=== PATIENT | female | born 1975 | race American Indian/Alaskan Native ===

== ENCOUNTER 2016-11-30 08:43 | Emergency (ER) | payer MEDICAID ==
[2016-11-30 08:45] VITALS: BMI 20.3
[2016-11-30 09:10] VITALS: RESP 18; TEMP 98.2
[2016-11-30 09:10] LABS: URINE BILIRUBIN NEGATIVE (NEGATIVE); URINE BLOOD NEGATIVE (NEGATIVE); URINE GLUCOSE (UA) NEGATIVE (NEGATIVE); URINE KETONE NEGATIVE (NEGATIVE); URINE LEUKOCYTE ESTERASE NEGATIVE Leu/uL (NEGATIVE); URINE PROTEIN NEGATIVE mg/dL (<30 mg/dL); URINE UROBILINOGEN 0.2 E.U./dL (<1 E.U./dL)
[2016-11-30 09:17] LABS: URINE APPEARANCE CLEAR (CLEAR); URINE COLOR YELLOW (YELLOW)
[2016-11-30 09:27] LABS: ADD MANUAL DIFF? NO
--- NOTE | 2016-11-30 09:28 | ED PDOC ---
Arrival/HPI - General Chief Complaint: Chest Pain Time Seen by Provider: 11/30/16 09:09 Historian: Patient - History of Present Illness Narrative History of Present Illness (Text): 11/30/16 09:00 A 41 year old female presents to the emergency room with complaints of left sided chest pain since yesterday. Patient reports that the pain is exacerbated with breathing, coughing, or laughing and is relieved when applying pressure to the chest with her hand. Patient notes that she had a similar episode 2 years ago. Patient admits to smoking and using a control patch. Patient denies any shortness of breath, headaches, dizziness, nausea, vomiting, diarrhea, or any other complaints. PMD: None Time/Duration: 24 hours Symptom Onset: Sudden Symptom Course: Unchanged Quality: Other (Pain) Severity Level: Moderate Activities at Onset: Light Context: Home Past Medical History - Provider Review Nursing Documentation Reviewed: Yes - Infectious Disease Hx of Infectious Diseases: None - Tetanus Immunization Tetanus Immunization: Up to Date - Past Medical History Past Medical History: No Previous - Cardiac Hx Cardiac Disorders: Yes - Pulmonary Hx Respiratory Disorders: No - Neurological Hx Neurological Disorder: No - HEENT Hx HEENT Disorder: No - Renal Hx Renal Disorder: No - Endocrine/Metabolic Hx Endocrine Disorders: No - Hematological/Oncological Hx Blood Disorders: No - Integumentary Hx Dermatological Disorder: No - Musculoskeletal/Rheumatological Hx Musculoskeletal Disorders: Yes Hx Osteoporosis: Yes - Gastrointestinal Hx Gastrointestinal Disorders: No - Genitourinary/Gynecological Hx Genitourinary Disorders: Yes Other/Comment: premature ovaires - Psychiatric Hx Psychophysiologic Disorder: No Hx Depression: No Hx Emotional Abuse: No Hx Physical Abuse: No Hx Substance Use: No - Surgical History Hx Musculoskeletal Surgery: Yes (ankle fracture) - Anesthesia Hx Anesthesia: Yes Hx Anesthesia Reactions: No Hx Malignant Hyperthermia: No - Suicidal Assessment Feels Threatened In Home Enviroment: No Family/Social History - Physician Review Nursing Documentation Reviewed: Yes Family/Social History: Neoplasm/Cancer (Mother has lung cancer) Smoking Status: Light Smoker < 10 Cigarettes Daily Hx Alcohol Use: No Hx Substance Use: No Hx Substance Use Treatment: No Allergies/Home Meds Allergies/Adverse Reactions: Allergies No Known Allergies Allergy (Verified 11/30/16 09:10) Home Medications: Home Meds Medication Instructions Recorded Confirmed Control Patch 1 patch TOP DAILY 11/30/16 Review of Systems - Physician Review All systems were reviewed & negative as marked: Yes - Review of Systems Respiratory: absent: SOB Cardiovascular: Chest Pain Gastrointestinal: absent: Diarrhea, Nausea, Vomiting Neurological: absent: Headache, Dizziness Physical Exam Vital Signs Reviewed: Yes Vital Signs Temp Pulse Resp BP Pulse Ox 11/30/16 08:43 98.2 F 72 18 124/62 98 Temperature: Afebrile Blood Pressure: Normal Pulse: Regular Respiratory Rate: Normal Appearance: Positive for: Well-Appearing, Non-Toxic, Comfortable Pain Distress: None Mental Status: Positive for: Alert and Oriented X 3 - Systems Exam Head: Present: Atraumatic, Normocephalic Pupils: Present: PERRL Conjunctiva: Present: Normal Mouth: Present: Moist Mucous Membranes Neck: Present: Normal Range of Motion Respiratory/Chest: Present: Clear to Auscultation, Good Air Exchange, Tender to Palpation (Tenderness over left breast. 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 ). No: Respiratory Distress, Accessory Muscle Use Cardiovascular: Present: Regular Rate and Rhythm, Normal S1, S2. No: Murmurs Abdomen: Present: Normal Bowel Sounds. No: Tenderness, Distention, Peritoneal Signs Upper Extremity: Present: Normal Inspection. No: Cyanosis, Edema Lower Extremity: Present: Normal Inspection. No: Edema Neurological: Present: GCS=15, CN II-XII Intact, Speech Normal Skin: Present: Warm, Dry, Normal Color. No: Rashes Psychiatric: Present: Alert, Oriented x 3, Normal Insight, Normal Concentration Medical Decision Making ED Course and Treatment: EKG: Ordered, reviewed, and independently interpreted the EKG. Rate : 71 BPM Rhythm : NSR Interpretation : 1st Degree AV block. Normal axis. No acute ischemia. CXR Impression: As read by Dr. García, no active disease. 11/30/16 11:31 pt resting quietly. reports feeling better after toradol. I disc test results w her, plan for f/u, and rtr. - Lab Interpretations Lab Results: 11/30/16 08:50 11/30/16 08:50 Lab Results 11/30/16 10:20: D-Dimer, Quantitative 0.34 11/30/16 08:50: WBC 8.8, RBC 4.25, Hgb 13.3, Hct 37.5, MCV 88.2, MCH 31.3, MCHC 35.5, RDW 13.4, Plt Count 246, MPV 11.2 H, Gran % 66.8, Lymph % (Auto) 23.2, [place] % (Auto) 7.5 H, Eos % (Auto) 2.3, Baso % (Auto) 0.2, Gran # 5.91, Lymph # 2.1, [place] # 0.7 H, Eos # 0.2, Baso # 0.02, Sodium 137, Potassium 3.9, Chloride 105, Carbon Dioxide 25, Anion Gap 11, BUN 7, Creatinine 0.6, Est GFR ( Amer) > 60, Est GFR (Non-Af Amer) > 60, Random Glucose 94, Calcium 9.2, Total Bilirubin 0.5, AST 26, ALT 18, Alkaline Phosphatase 80, Troponin I < 0.01, Total Protein 7.7, Albumin 4.0, Globulin 3.7, Albumin/Globulin Ratio 1.1 11/30/16 08:45: Urine Color Yellow, Urine Appearance Clear, Urine pH 6.0, Ur Specific [place] 1.020, Urine Protein Negative, Urine Glucose (UA) Negative, Urine Ketones Negative, Urine Blood Negative, Urine Nitrate Negative, Urine Bilirubin Negative, Urine Urobilinogen 0.2, Ur Leukocyte Esterase Negative, Urine HCG, Qual Negative I have reviewed the lab results: Yes - RAD Interpretation Radiology Orders: 11/30/16 09:11 CHEST TWO VIEWS (PA/LAT) [RAD] Stat - Medication Orders Current Medication Orders: Discontinued Medications Ketorolac Tromethamine (Toradol) 10 mg IVP STAT STA Stop: 11/30/16 09:10 Last Admin: 11/30/16 09:21 Dose: 10 MG IVP Administration Document 11/30/16 09:[address] [facility] (Rec: 11/30/16 09:21 COUNT INCLUDES THE [facility]-[id number]) Charges for Administration # of IVP Administrations 1 - Scribe Statement The provider has reviewed the documentation as recorded by the Scribe Kp Barnes All medical record entries made by the Scribe were at my direction and personally dictated by me. I have reviewed the chart and agree that the record accurately reflects my personal performance of the history, physical exam, medical decision making, and the department course for this patient. I have also personally directed, reviewed, and agree with the discharge instructions and disposition. Disposition/Present on Arrival - Present on Arrival Any Indicators Present on Arrival: No History of DVT/PE: No History of Uncontrolled Diabetes: No Urinary Catheter: No History of Decub. Ulcer: No History Surgical Site Infection Following: None - Disposition Have Diagnosis and Disposition been Completed?: Yes Diagnosis: Chest wall pain Disposition: HOME/ ROUTINE Disposition Time: 11:32 Condition: IMPROVED Discharge Instructions (ExitCare): Chest Pain (ED)
[2016-11-30 09:34] LABS: BASO # 0.02 K/mm3 (0.0-2.0); BASO % 0.2 % (0.0-3.0); EOS # 0.2 (0.0-0.7); EOS % 2.3 % (1.5-5.0); GRAN # 5.91 (1.4-6.5); GRAN % 66.8 % (50.0-68.0); HEMATOCRIT 37.5 % (36.0-48.0); LYMPH # 2.1 (1.2-3.4); LYMPH % 23.2 % (22.0-35.0); MEAN CELL VOLUME 88.2 fL (80.0-105.0); MEAN CORPUSCULAR HEMOGLOBIN 31.3 pg (25.0-35.0); MEAN CORPUSCULAR HGB CONC 35.5 g/dl (31.0-37.0); MEAN PLATELET VOLUME 11.2 fl (7.0-11.0); MONO # 0.7 (0.1-0.6); MONO % 7.5 % (1.0-6.0); PLATELET COUNT 246 10^3/uL (120.0-450.0); RED CELL DISTRIBUTION WIDTH 13.4 % (11.5-14.5); WHITE BLOOD COUNT 8.8 10^3/ul (4.5-11.0)
[2016-11-30 09:40] LABS: ALB/GLOB RATIO 1.1 (1.1-1.8); ALKALINE PHOSPHATASE 80 U/L (38-133); ALT/SGPT 18 U/L (7-56); AST/SGOT 26 U/L (15-39); BILIRUBIN,TOTAL 0.5 mg/dL (0.2-1.3); BLOOD UREA NITROGEN 7 mg/dL (7-21); CALCIUM 9.2 mg/dL (8.4-10.5); CARBON DIOXIDE 25 mmol/L (21-33); CHLORIDE 105 mmol/L (98-107); GFR AFRICAN-AMERICAN > 60; GLUCOSE,RANDOM 94 mg/dL (70-110); POTASSIUM 3.9 mmol/L (3.6-5.0); SODIUM 137 mmol/L (132-148); TOTAL PROTEIN 7.7 g/dL (5.8-8.3)
[2016-11-30 09:51] LABS: TROPONIN I < 0.01 ng/mL
--- NOTE | 2016-11-30 10:22 | RAD ---
HISTORY: cp COMPARISON: No prior. TECHNIQUE: Chest PA and lateral FINDINGS: LUNGS: No active pulmonary disease. PLEURA: No significant pleural effusion identified. No pneumothorax apparent. CARDIOVASCULAR: Normal. OSSEOUS STRUCTURES: No significant abnormalities. VISUALIZED UPPER ABDOMEN: Normal. OTHER FINDINGS: None. IMPRESSION: No active disease.
[2016-11-30 11:42] VITALS: BP 129/76; PULSE 67; O2SAT 99
--- NOTE | 2016-11-30 12:36 | CARD ---
APPROVED REPORT EKG Measurement Heart [id number] <Conclusion> Sinus rhythm with 1st degree AV block Possible LVH by voltage.
== END 2016-11-30 11:43 | disposition home or self-care (01) ==
LOC: ED 08:43
DX: R07.89 Other chest pain (principal)
CPT/HCPCS: 71020; 80053; 81003; 84484; 84703; 85025; 85378; 93005; 96374; 99283; J1885

== ENCOUNTER 2017-10-03 13:13 | Emergency (ER) | payer MEDICAID ==
[2017-10-03 13:13] VITALS: BMI 20.3
--- NOTE | 2017-10-03 15:37 | ED PDOC ---
Arrival/HPI - General Chief Complaint: Lower Extremity Problem/Injury Time Seen by Provider: 10/03/17 15:36 Historian: Patient - History of Present Illness Narrative History of Present Illness (Text): 10/03/17 15:37 This 42 yo female presents to this Emergency department complaining of right dorsal foot pain and swelling x 2 weeks. Patient denies trauma. Patient admits driving, lifting and walking through the day at work. Patient denies pmh gout, plantar foot pain, ankle pain, skin rash, redness, ecchymosis, calf pain, leg swelling, recent travel, blood disorder, or dizziness. Time/Duration: Other (noncontributory) Context: Home Past Medical History - Provider Review Nursing Documentation Reviewed: Yes - Infectious Disease Hx of Infectious Diseases: None - Tetanus Immunization Tetanus Immunization: Up to Date - Past Medical History Past Medical History: No Previous - Cardiac Hx Cardiac Disorders: No - Pulmonary Hx Respiratory Disorders: No - Neurological Hx Neurological Disorder: No - HEENT Hx HEENT Disorder: No - Renal Hx Renal Disorder: No - Endocrine/Metabolic Hx Endocrine Disorders: No - Hematological/Oncological Hx Blood Disorders: No - Integumentary Hx Dermatological Disorder: No - Musculoskeletal/Rheumatological Hx Musculoskeletal Disorders: Yes Hx Osteoporosis: Yes - Gastrointestinal Hx Gastrointestinal Disorders: No - Genitourinary/Gynecological Hx Genitourinary Disorders: Yes Other/Comment: premature ovaires - Psychiatric Hx Psychophysiologic Disorder: No Hx Depression: No Hx Emotional Abuse: No Hx Physical Abuse: No Hx Substance Use: No - Surgical History Hx Musculoskeletal Surgery: Yes (ankle fracture) - Anesthesia Hx Anesthesia: Yes Hx Anesthesia Reactions: No Hx Malignant Hyperthermia: No - Suicidal Assessment Feels Threatened In Home Enviroment: No Family/Social History - Physician Review Nursing Documentation Reviewed: Yes Family/Social History: Other (noncontributory) Smoking Status: Light Smoker < 10 Cigarettes Daily Hx Alcohol Use: No Hx Substance Use: No Hx Substance Use Treatment: No Allergies/Home Meds Allergies/Adverse Reactions: Allergies No Known Allergies Allergy (Verified 11/30/16 09:10) Home Medications: Home Meds Medication Instructions Recorded Confirmed Control Patch 1 patch TOP DAILY 11/30/16 Review of Systems - Review of Systems Constitutional: Normal. absent: Fatigue, Weight Change, Fevers Eyes: Normal ENT: Normal Respiratory: Normal. absent: SOB, Cough Cardiovascular: Normal. absent: Chest Pain Gastrointestinal: Normal. absent: Abdominal Pain, Nausea, Vomiting Genitourinary Female: Normal. absent: Dysuria, Frequency, Hematuria Musculoskeletal: Other (right foot pain and swelling) Skin: Normal. absent: Rash Neurological: Normal. absent: Headache, Dizziness Endocrine: Normal Hemo/Lymphatic: Normal Psychiatric: Normal Physical Exam Vital Signs Temp Pulse Resp BP Pulse Ox 10/03/17 15:53 98.0 F 70 18 118/75 98 Temperature: Afebrile Blood Pressure: Normal Pulse: Regular Respiratory Rate: Normal Appearance: Positive for: Well-Appearing, Non-Toxic, Comfortable Pain Distress: None Mental Status: Positive for: Alert and Oriented X 3 - Systems Exam Head: Present: Atraumatic, Normocephalic Pupils: Present: PERRL Extroacular Muscles: Present: EOMI Conjunctiva: Present: Normal Mouth: Present: Moist Mucous Membranes Neck: Present: Normal Range of Motion Upper Extremity: Present: Normal Inspection, Normal ROM Lower Extremity: Present: NORMAL PULSES, Normal ROM, Tenderness (Mild tenderness over the dorsal aspect of right foot, over the area of 1st, and 2nd metatarsal. No erythema, no warmth on palaption. No ecchymosis), Swelling, Neurovascularly Intact, Capillary Refill < 2 s. No: Edema, CALF TENDERNESS, Cyanosis, Mariah's Sign, Erythema, Deformity, Temperature Abnormalties Neurological: Present: GCS=15, CN II-XII Intact, Speech Normal, Motor Func Grossly Intact, Normal Sensory Function, Normal Cerebellar Funct, Gait Normal, Memory Normal Skin: Present: Warm, Dry, Normal Color. No: Rashes Psychiatric: Present: Alert, Oriented x 3, Normal Insight, Normal Concentration Medical Decision Making ED Course and Treatment: 10/03/17 17:01 Re-evaluation. Patient feels better. Discussed results and plan with patient who expresses understanding. All questions answered and there is agreement with the plan to discharge home with instructions. Patient stable for discharge. Return if symptoms persist or worsen. Re-evaluation Time: 17:01 Reassessment Condition: Re-examined, Improved - RAD Interpretation Narrative RAD Interpretations (Text): 10/03/17 17:01 PROCEDURE: Right Foot Radiographs. HISTORY: pain COMPARISON: None. FINDINGS: BONES: Normal. No fracture. JOINTS: Arthritic degenerative changes SOFT TISSUES: Normal. OTHER FINDINGS: None. IMPRESSION: No evidence of acute fracture or dislocation. Mild arthritic changes. Radiology Orders: 10/03/17 15:37 FOOT RIGHT 3 VIEWS ROUTINE [RAD] Stat - Medication Orders Current Medication Orders: Discontinued Medications Naproxen (Anaprox Ds) 550 mg PO STAT STA Stop: 10/03/17 15:39 Last Admin: 10/03/17 15:53 Dose: 550 mg Disposition/Present on Arrival - Present on Arrival Any Indicators Present on Arrival: No History of DVT/PE: No History of Uncontrolled Diabetes: No Urinary Catheter: No History of Decub. Ulcer: No History Surgical Site Infection Following: None - Disposition Have Diagnosis and Disposition been Completed?: Yes Diagnosis: Foot pain, right Disposition: HOME/ ROUTINE Disposition Time: 17:02 Patient Plan: Discharge Patient Problems: Current Active Problems Problem Status Onset Foot pain, right Acute Condition: GOOD Discharge Instructions (ExitCare): Foot Sprain (ED) Additional Instructions: Call private doctor fpr follow up in 1-2 days. Take medication as instructed. Return to emergency if symptoms worsen. keep foot elevated, ice, rest, cole bandage, crutches. Removed cole bandage at bedtime. Return to emergency if symptoms worsen. Prescriptions: Famotidine [Pepcid] 40 mg PO DAILY #10 tablet Naproxen 500 mg PO BID PRN #14 tab PRN Reason: Pain, Severe (8-10) Referrals: Syed Aleman, [Primary Care Provider] - Follow up with primary [facility] [Outside] - Follow up with primary [facility] [Outside] - Follow up with primary Forms: [facility] ([place]), WORK NOTE
[2017-10-03] MEDS ORDERED: Naproxen 550 mg Tab PO STA (15:38)
[2017-10-03 15:54] VITALS: RESP 18; TEMP 98; O2SAT 98
--- NOTE | 2017-10-03 16:57 | RAD ---
PROCEDURE: Right Foot Radiographs. HISTORY: pain COMPARISON: None. FINDINGS: BONES: Normal. No fracture. JOINTS: Arthritic degenerative changes SOFT TISSUES: Normal. OTHER FINDINGS: None. IMPRESSION: No evidence of acute fracture or dislocation. Mild arthritic changes.
[2017-10-03 17:19] VITALS: BP 121/76; PULSE 72
== END 2017-10-03 17:19 | disposition home or self-care (01) ==
LOC: ED 13:13
DX: M79.671 Pain in right foot (principal)

== ENCOUNTER 2017-11-15 09:30 | Emergency (ER) | payer MEDICAID ==
[2017-11-15 09:49] VITALS: BMI 20.9
[2017-11-15 09:50] VITALS: TEMP 98.5; O2SAT 97
[2017-11-15] MEDS ORDERED: Albuterol 0.083% Inhal Sol (2.5 mg/3 mL) UD IH STA (10:09)
--- NOTE | 2017-11-15 10:17 | ED PDOC ---
Arrival/HPI - General Chief Complaint: Flu-like Symptoms Time Seen by Provider: 11/15/17 09:37 Historian: Patient - History of Present Illness Narrative History of Present Illness (Text): 11/15/17 10:12 42yr old female presents today with cold symptoms since 11/03/17. pt states she started with cough, nasal congestion and fevers. pt states she felt better after a few days and then developed symptoms again. pt states on the symptoms worsened, pt states she had fevers again, nasal congestion, sore throat. no vomiting/diarrhea. no abdominal pain. pt states on the the symptoms worsened again and pt had fevers of 102 at home. pt states cough is productive. pt c/o wheezing sensation with deep inspiration. pt c/o right ear pain. pt c/o headaches. states she took excedrin at home for headache with improvement. Past Medical History - Provider Review Nursing Documentation Reviewed: Yes - Travel History Have you recently traveled outside [place] w/in the past 3 mons?: No - Infectious Disease Hx of Infectious Diseases: None - Tetanus Immunization Tetanus Immunization: Up to Date - Past Medical History Past Medical History: No Previous - Cardiac Hx Cardiac Disorders: No - Pulmonary Hx Respiratory Disorders: No - Neurological Hx Neurological Disorder: No - HEENT Hx HEENT Disorder: No - Renal Hx Renal Disorder: No - Endocrine/Metabolic Hx Endocrine Disorders: No - Hematological/Oncological Hx Blood Disorders: No - Integumentary Hx Dermatological Disorder: No - Musculoskeletal/Rheumatological Hx Musculoskeletal Disorders: Yes Hx Osteoporosis: Yes - Gastrointestinal Hx Gastrointestinal Disorders: No - Genitourinary/Gynecological Hx Genitourinary Disorders: Yes Other/Comment: premature ovaires - Psychiatric Hx Psychophysiologic Disorder: No Hx Depression: No Hx Emotional Abuse: No Hx Physical Abuse: No Hx Substance Use: No - Surgical History Hx Musculoskeletal Surgery: Yes (ankle fracture) - Anesthesia Hx Anesthesia: Yes Hx Anesthesia Reactions: No Hx Malignant Hyperthermia: No - Suicidal Assessment Feels Threatened In Home Enviroment: No Family/Social History - Physician Review Nursing Documentation Reviewed: Yes Family/Social History: Unknown Family HX Smoking Status: Light Smoker < 10 Cigarettes Daily Hx Alcohol Use: No Hx Substance Use: No Hx Substance Use Treatment: No Allergies/Home Meds Allergies/Adverse Reactions: Allergies No Known Allergies Allergy (Verified 11/15/17 09:49) Home Medications: Home Meds Medication Instructions Recorded Confirmed D-Methorphan/PE/Acetaminophen [Day 1 each PO DAILY 11/15/17 11/15/17 Time Cold-Flu Softgel] Norelgestromin/Ethin.estradiol 1 each TD QWK 11/15/17 11/15/17 [Xulane Patch] Review of Systems - Review of Systems Constitutional: Fatigue, Fevers ENT: Sore Throat, Sinus Congestion Respiratory: Cough, Wheezing. absent: SOB Cardiovascular: absent: Chest Pain, Palpitations Gastrointestinal: absent: Abdominal Pain, Constipation, Diarrhea, Nausea, Vomiting Genitourinary Female: absent: Dysuria Musculoskeletal: absent: Arthralgias Skin: absent: Rash, Pruritis Neurological: Headache. absent: Dizziness Psychiatric: absent: Anxiety, Depression Physical Exam Vital Signs Reviewed: Yes Vital Signs Temp Pulse Resp BP Pulse Ox 11/15/17 09:50 98.5 F 71 19 136/88 97 Temperature: Afebrile Blood Pressure: Normal Pulse: Regular Respiratory Rate: Normal Appearance: Positive for: Well-Appearing, Non-Toxic, Comfortable Pain Distress: None Mental Status: Positive for: Alert and Oriented X 3 - Systems Exam Head: Present: Atraumatic Pupils: Present: PERRL Extroacular Muscles: Present: EOMI Conjunctiva: Present: Normal Ears: Present: Normal, NORMAL TM Mouth: Present: Moist Mucous Membranes, Normal Lips, Normal Tounge. No: Drooling, Trismus Pharnyx: Present: Normal. No: ERYTHEMA, EXUDATE, TONSILS ENLARGED, Peritonsilar Swelling, Uvular Deviation, Muffled/Hoarse Voice Nose (External): Present: Atraumatic Nose (Internal): Present: Engorged, Clear Mucous Neck: Present: Normal Range of Motion, Lymphadenopathy, Trachea Midline. No: Meningeal Signs Respiratory/Chest: Present: Good Air Exchange, Wheezes (bilateral wheezing), Rhonchi. No: Clear to Auscultation, Respiratory Distress, Accessory Muscle Use , Retracting, Tachypneic Cardiovascular: Present: Regular Rate and Rhythm Abdomen: No: Tenderness, Distention, Rebound, Guarding Upper Extremity: Present: Normal ROM Lower Extremity: Present: Normal ROM Neurological: Present: GCS=15, Speech Normal Skin: Present: Warm, Dry, Normal Color. No: Rashes Psychiatric: Present: Alert, Oriented x 3 Medical Decision Making ED Course and Treatment: 11/15/17 10:29 Patient is nontoxic well-appearing. C/o flu-like symptoms. cbc; wnl cmp: wnl tylenol PO albuterol nebulizer rapid flu; negative cxr; wnl Tamiflu po zithromax po 11/15/17 11:55 Patient reassessment: Pt feeling better; vitals stable. lungs CTA bilaterally. discussed all results with patient. I advised follow up with primary care physician within the next 2 days. I advised increase fluids and return if symptoms worsen persist or if new symptoms develop Patient verbalizes understanding of discharge instructions and need for immediate followup. all aspects of this case were discussed the attending of record. IMPRESSION; Influenza, cough Motrin one tablet every 6 hours as needed for pain Tamiflu: 1 capsule twice daily 5 days zithromax daily x 4 days. Increase fluids Followup with primary care physician the next 2 days Return if symptoms worsen persist or if new symptoms develop: Continued high fevers, dizziness, weakness, chest pain or shortness of breath vomiting/diarrhea , or if any other concerning symptoms develop - Lab Interpretations Lab Results: 11/15/17 10:25 11/15/17 10:25 Lab Results 11/15/17 10:25: WBC 7.3, RBC 4.24, Hgb 12.7, Hct 37.6, MCV 88.7, MCH 30.0, MCHC 33.8, RDW 13.2, Plt Count 160, MPV 11.5 H, Gran % 56.7, Lymph % (Auto) 29.7, [place] % (Auto) 10.2 H, Eos % (Auto) 2.9, Baso % (Auto) 0.5, Gran # 4.15, Lymph # (Auto) 2.2, [place] # (Auto) 0.8 H, Eos # (Auto) 0.2, Baso # (Auto) 0.04 11/15/17 10:25: Sodium 141, Potassium 3.7, Chloride 107, Carbon Dioxide 25, Anion Gap 13, BUN 6 L, Creatinine 0.6 L, Est GFR ( Amer) > 60, Est GFR ( Non-Af Amer) > 60, Random Glucose 85, Calcium 9.6, Total Bilirubin 0.5, AST 28, ALT 20, Alkaline Phosphatase 101, Total Protein 7.1, Albumin 3.9, Globulin 3.2, Albumin/Globulin Ratio 1.2 11/15/17 10:25: Influenza Typ A,B (EIA) Negative for flu a/b - RAD Interpretation Radiology Orders: 11/15/17 10:09 CHEST TWO VIEWS (PA/LAT) [RAD] Stat - Medication Orders Current Medication Orders: Azithromycin (Zithromax) 500 mg PO STAT STA PRN Reason: Protocol Stop: 11/15/17 11:53 Oseltamivir Phosphate (Tamiflu Cap) 75 mg PO STAT STA PRN Reason: Protocol Stop: 11/15/17 11:53 Discontinued Medications Acetaminophen (Tylenol 325mg Tab) 975 mg PO STAT STA Stop: 11/15/17 10:10 Last Admin: 11/15/17 10:33 Dose: 975 mg MAR Pain/Vitals Document 11/15/17 10:33 [email or web address] (Rec: 11/15/17 10:41 [email or web address] [id number]) Pain Reassessment Is This A Pain ReAssessment? No Sleep Is patient sleeping during reassessment? No Presence of Pain Presence of Pain Yes Pain Scale Used Pain Scale Used Numeric Location Pain Location Body Site Generalized Description Constant Intensity 6 Scale Used Numeric Pain Behavior Facial Grimacing Aggravating Factors Changing Position Alleviating Factors Medication Albuterol Sulfate (Albuterol 0.083% Inhal Becky (2.5 Mg/3 Ml) Ud) 2.5 mg IH STAT STA Stop: 11/15/17 10:10 Last Admin: 11/15/17 10:41 Dose: 2.5 mg Disposition/Present on Arrival - Present on Arrival Any Indicators Present on Arrival: No History of DVT/PE: No History of Uncontrolled Diabetes: No Urinary Catheter: No History of Decub. Ulcer: No History Surgical Site Infection Following: None - Disposition Have Diagnosis and Disposition been Completed?: Yes Diagnosis: Cough, Influenza Disposition: HOME/ ROUTINE Disposition Time: 11:56 Patient Plan: Discharge Condition: GOOD Discharge Instructions (ExitCare): Flu, Adult (DC), Cough in Adults Additional Instructions: Motrin one tablet every 6 hours as needed for pain/fever reduction albuterol; 2puffs every 4-6 hours as needed for cough Tamiflu: 1 capsule twice daily 5 days zithromax daily x 4 days. Increase fluids Followup with primary care physician the next 2 days Return if symptoms worsen persist or if new symptoms develop: Continued high fevers, dizziness, weakness, chest pain or shortness of breath vomiting/diarrhea , or if any other concerning symptoms develop Prescriptions: Albuterol HFA [Ventolin HFA 90 mcg/actuation (8 g)] 2 puff IH [id number] PRN #1 inhaler PRN Reason: Cough Azithromycin [Zithromax] 250 mg PO DAILY #4 tab Ibuprofen [Motrin] 600 mg PO Q6H PRN #20 tab PRN Reason: pain/fever reduction Oseltamivir [Tamiflu] 75 mg PO BID #10 cap Referrals: Temo Landry DO [Staff Provider] - Follow up with primary Forms: [facility] ([place]), WORK NOTE
--- NOTE | 2017-11-15 10:34 | RAD ---
HISTORY: cough/fever COMPARISON: 11/30/2016 TECHNIQUE: Chest PA and lateral FINDINGS: LUNGS: No active pulmonary disease. PLEURA: No significant pleural effusion identified. No pneumothorax apparent. CARDIOVASCULAR: Normal. OSSEOUS STRUCTURES: No significant abnormalities. VISUALIZED UPPER ABDOMEN: Normal. OTHER FINDINGS: None. IMPRESSION: No active disease.
[2017-11-15 11:11] LABS: BASO # 0.04 K/mm3 (0.0-2.0); BASO % 0.5 % (0.0-3.0); EOS # 0.2 (0.0-0.7); EOS % 2.9 % (1.5-5.0); GRAN # 4.15 (1.4-6.5); GRAN % 56.7 % (50.0-68.0); HEMOGLOBIN 12.7 g/dL (12.0-16.0); LYMPH # 2.2 (1.2-3.4); LYMPH % 29.7 % (22.0-35.0); MEAN CELL VOLUME 88.7 fl (80.0-105.0); MEAN CORPUSCULAR HGB CONC 33.8 g/dl (31.0-37.0); MEAN PLATELET VOLUME 11.5 fl (7.0-11.0); MONO # 0.8 (0.1-0.6); MONO % 10.2 % (1.0-6.0); RBC 4.24 10^6/uL (3.5-6.1); RED CELL DISTRIBUTION WIDTH 13.2 % (11.5-14.5); WHITE BLOOD COUNT 7.3 10^3/ul (4.5-11.0)
[2017-11-15 11:18] LABS: ALB/GLOB RATIO 1.2 (1.1-1.8); ALBUMIN 3.9 g/dL (3.0-4.8); ALT/SGPT 20 U/L (7-56); AST/SGOT 28 U/L (14-36); BLOOD UREA NITROGEN 6 mg/dL (7-21); CALCIUM 9.6 mg/dL (8.4-10.5); GFR AFRICAN-AMERICAN > 60; GFR NON-AFRICAN AMERICAN > 60
[2017-11-15 12:08] VITALS: BP 124/88; PULSE 66; RESP 18
== END 2017-11-15 12:09 | disposition home or self-care (01) ==
LOC: ED 09:30
DX: J11.1 Influenza due to unidentified influenza virus with other respiratory manifestations (principal); R05 Cough; F17.210 Nicotine dependence, cigarettes, uncomplicated

== ENCOUNTER 2017-12-20 14:58 | Emergency (ER) | payer MEDICAID ==
[2017-12-20 15:19] VITALS: BMI 19.6
[2017-12-20 15:20] VITALS: TEMP 98.6
[2017-12-20 16:25] LABS: BASO # 0.03 K/mm3 (0.0-2.0); BASO % 0.3 % (0.0-3.0); EOS # 0.2 (0.0-0.7); EOS % 1.6 % (1.5-5.0); GRAN # 5.82 (1.4-6.5); GRAN % 61.5 % (50.0-68.0); HEMOGLOBIN 13.9 g/dL (12.0-16.0); LYMPH # 3.1 (1.2-3.4); LYMPH % 32.2 % (22.0-35.0); MEAN CELL VOLUME 88.7 fl (80.0-105.0); MEAN CORPUSCULAR HEMOGLOBIN 30.8 pg (25.0-35.0); MEAN CORPUSCULAR HGB CONC 34.8 g/dl (31.0-37.0); MEAN PLATELET VOLUME 12.3 fl (7.0-11.0); MONO # 0.4 (0.1-0.6); MONO % 4.4 % (1.0-6.0); RBC 4.51 10^6/uL (3.5-6.1); RED CELL DISTRIBUTION WIDTH 12.9 % (11.5-14.5); WHITE BLOOD COUNT 9.5 10^3/ul (4.5-11.0)
[2017-12-20 16:34] LABS: ALB/GLOB RATIO 1.2 (1.1-1.8); ALBUMIN 4.5 g/dL (3.0-4.8); CALCIUM 9.9 mg/dL (8.4-10.5); GFR AFRICAN-AMERICAN > 60; GFR NON-AFRICAN AMERICAN > 60
[2017-12-20 16:43] VITALS: BP 112/70; PULSE 71; RESP 16; O2SAT 99
[2017-12-20 16:44] LABS: TROPONIN I 0.02 ng/mL
[2017-12-20 16:50] LABS: ALT/SGPT 21 U/L (7-56); AST/SGOT 37 U/L (14-36); BLOOD UREA NITROGEN 10 mg/dL (7-21)
[2017-12-20 17:01] LABS: INR 1.45 (0.93-1.08); PARTIAL THROMBOPLASTIN TIME 29.3 Seconds (25.1-36.5); PROTHROMBIN TIME 16.6 SECONDS (9.4-12.5)
--- NOTE | 2017-12-20 17:22 | CT ---
PROCEDURE: CT HEAD WITHOUT CONTRAST. HISTORY: headache - h/o CVA with tPA November 2017 COMPARISON: None available. TECHNIQUE: Axial computed tomography images were obtained through the head/brain without intravenous contrast. Radiation dose: Total exam DLP = 714.53 mGy-cm. This CT exam was performed using one or more of the following dose reduction techniques: Automated exposure control, adjustment of the mA and/or kV according to patient size, and/or use of iterative reconstruction technique. FINDINGS: HEMORRHAGE: Petechial hemorrhage versus cortical laminar necrosis right frontotemporal. No other intracranial hemorrhage. BRAIN: No definite intracranial mass. Right MCA territory infarct involving frontal and temporal lobes. Recommend further evaluation with MRI. There is some curvilinear high attenuation within the right frontal temporal cortex which may represent cortical laminar necrosis or petechial hemorrhage. VENTRICLES: No hydrocephalus. 2 mm midline shift towards the left as a result of right frontotemporal cytotoxic edema. CALVARIUM: Unremarkable. PARANASAL SINUSES: Unremarkable as visualized. No significant inflammatory changes. MASTOID AIR CELLS: Unremarkable as visualized. No inflammatory changes. OTHER FINDINGS: None. IMPRESSION: Findings consistent with acute right MCA territory infarct. Curvilinear high attenuation likely represents cortical laminar necrosis but cannot rule out particular hemorrhage. Further evaluation with magnetic resonance imaging advised. 2 mm midline shift towards the left. No additional abnormality.
--- NOTE | 2017-12-20 18:50 | ED PDOC ---
Arrival/HPI - General Chief Complaint: Headache Time Seen by Provider: 12/20/17 15:37 Historian: Patient - History of Present Illness Narrative History of Present Illness (Text): 12/20/17 18:46 A 42 year old female presents to the emergency department complaining of a chronic headache and weakness for greater than 1 month. Patient had an ischemic CVA on 11/27/17 requiring tPA and INR intervention. Patient has been at baseline regarding muscle strength and coordination since being discharge after the stroke. Patient is currently on Coumadin. She reports being compliant with all her medications. Patient denies any vision changes, slurred speech, dizziness, fever, chills, nausea, vomiting, abdominal pain, chest pain, shortness of breath or any other complaints. Time/Duration: > month Symptom Course: Unchanged Context: Home Past Medical History - Provider Review Nursing Documentation Reviewed: Yes - Infectious Disease Hx of Infectious Diseases: None - Tetanus Immunization Tetanus Immunization: Up to Date - Past Medical History Past Medical History: No Previous - Cardiac Hx Cardiac Disorders: No - Pulmonary Hx Respiratory Disorders: No - Neurological Hx Neurological Disorder: No - HEENT Hx HEENT Disorder: No - Renal Hx Renal Disorder: No - Endocrine/Metabolic Hx Endocrine Disorders: No - Hematological/Oncological Hx Blood Disorders: No - Integumentary Hx Dermatological Disorder: No - Musculoskeletal/Rheumatological Hx Musculoskeletal Disorders: Yes Hx Osteoporosis: Yes - Gastrointestinal Hx Gastrointestinal Disorders: No - Genitourinary/Gynecological Hx Genitourinary Disorders: Yes Other/Comment: premature ovaires - Psychiatric Hx Psychophysiologic Disorder: No Hx Depression: No Hx Emotional Abuse: No Hx Physical Abuse: No Hx Substance Use: No - Surgical History Hx Musculoskeletal Surgery: Yes (ankle fracture) - Anesthesia Hx Anesthesia: Yes Hx Anesthesia Reactions: No Hx Malignant Hyperthermia: No - Suicidal Assessment Feels Threatened In Home Enviroment: No Family/Social History - Physician Review Nursing Documentation Reviewed: Yes Family/Social History: No Known Family HX Smoking Status: Light Smoker < 10 Cigarettes Daily Hx Alcohol Use: No Hx Substance Use: No Hx Substance Use Treatment: No Allergies/Home Meds Allergies/Adverse Reactions: Allergies No Known Allergies Allergy (Verified 11/15/17 09:49) Home Medications: Home Meds Medication Instructions Recorded Confirmed D-Methorphan/PE/Acetaminophen [Day 1 each PO DAILY 11/15/17 11/15/17 Time Cold-Flu Softgel] Norelgestromin/Ethin.estradiol 1 each TD QWK 11/15/17 11/15/17 [Xulane Patch] Review of Systems - Physician Review All systems were reviewed & negative as marked: Yes - Review of Systems Constitutional: Other (generalized weakness). absent: Fevers, Night Sweats Eyes: absent: Vision Changes Respiratory: absent: SOB Cardiovascular: absent: Chest Pain Gastrointestinal: absent: Abdominal Pain, Nausea, Vomiting Neurological: Headache. absent: Dizziness, Speech Changes Physical Exam Vital Signs Reviewed: Yes Vital Signs Temp Pulse Resp BP Pulse Ox 12/20/17 16:42 71 16 112/70 99 12/20/17 15:01 98.6 F 90 18 113/77 96 Temperature: Afebrile Blood Pressure: Normal Pulse: Regular Respiratory Rate: Normal Appearance: Positive for: Well-Appearing, Non-Toxic, Comfortable Pain Distress: None Mental Status: Positive for: Alert and Oriented X 3 - Systems Exam Head: Present: Atraumatic, Normocephalic Pupils: Present: PERRL Extroacular Muscles: Present: EOMI Conjunctiva: Present: Normal Mouth: Present: Moist Mucous Membranes Neck: Present: Normal Range of Motion Respiratory/Chest: Present: Clear to Auscultation, Good Air Exchange. No: Respiratory Distress, Accessory Muscle Use Cardiovascular: Present: Regular Rate and Rhythm, Normal S1, S2. No: Murmurs Abdomen: Present: Normal Bowel Sounds. No: Tenderness, Distention, Peritoneal Signs Back: Present: Normal Inspection Upper Extremity: Present: Normal Inspection, Normal ROM, NORMAL PULSES, Neurovascularly Intact. No: Cyanosis, Edema Lower Extremity: Present: Normal Inspection, NORMAL PULSES, Normal ROM, Neurovascularly Intact. No: Edema, CALF TENDERNESS Neurological: Present: GCS=15, CN II-XII Intact, Speech Normal, Motor Func Grossly Intact, Normal Sensory Function, Normal Cerebellar Funct Skin: Present: Warm, Dry, Normal Color. No: Rashes Psychiatric: Present: Alert, Oriented x 3, Normal Insight, Normal Concentration Medical Decision Making ED Course and Treatment: 12/20/17 18:46 Impression: A 42 year old female with a chronic headache and weakness greater than 1 month Plan: -- Head CT -- Chest xray -- EKG -- Labs -- Reassess and disposition Progress Notes: EKG shows NSR at 70 BPM with a 1st degree AV block. Interpreted by me. Chest xray read and interpreted by me, which shows no active disease. Report Date : 12/20/2017 17:20:35 PROCEDURE: CT HEAD WITHOUT CONTRAST. Dictator : Skip Betancourt MD IMPRESSION: Findings consistent with acute right MCA territory infarct. Curvilinear high attenuation likely represents cortical laminar necrosis but cannot rule out particular hemorrhage. Further evaluation with magnetic resonance imaging advised. 2 mm midline shift towards the left. No additional abnormality. Labs reviewed, INR of 1.45 which is subtherapeutic. I have discussed the results and plan with the patient, who expresses understanding. Patient in agreement with plan to be discharged home. Patient is stable for discharge. Patient was instructed to follow up with her neurologist in 1-2 days or return if symptoms worsen or new concerning symptoms arise. - Lab Interpretations Lab Results: 12/20/17 16:00 12/20/17 16:00 Lab Results 12/20/17 16:00: PT 16.6 H, INR 1.45 H, APTT 29.3 12/20/17 16:00: Sodium 142, Potassium 4.2, Chloride 104, Carbon Dioxide 26, Anion Gap 16, BUN 10, Creatinine 0.6 L, Est GFR ( Amer) > 60, Est GFR ( Non-Af Amer) > 60, Random Glucose 110, Calcium 9.9, Magnesium 2.0, Total Bilirubin 0.7, AST 37 H D, ALT 21, Alkaline Phosphatase 86, Lactate Dehydrogenase 638, Total Creatine Kinase 56, Troponin I 0.02 D, Total Protein 8.2, Albumin 4.5, Globulin 3.8, Albumin/Globulin Ratio 1.2 12/20/17 16:00: WBC 9.5 D, RBC 4.51, Hgb 13.9, Hct 40.0, MCV 88.7, MCH 30.8, MCHC 34.8, RDW 12.9, Plt Count 190, MPV 12.3 H, Gran % 61.5, Lymph % (Auto) 32.2 , Gregory % (Auto) 4.4, Eos % (Auto) 1.6, Baso % (Auto) 0.3, Gran # 5.82, Lymph # ( Auto) 3.1, Gregory # (Auto) 0.4, Eos # (Auto) 0.2, Baso # (Auto) 0.03 I have reviewed the lab results: Yes - RAD Interpretation Radiology Orders: 12/20/17 16:02 HEAD W/O CONTRAST [CT] Stat CHEST ONE VIEW [RAD] Stat - Scribe Statement The provider has reviewed the documentation as recorded by the Scribe Wendi Gonzales Provider Scribe Attestation: All medical record entries made by the Scribe were at my direction and personally dictated by me. I have reviewed the chart and agree that the record accurately reflects my personal performance of the history, physical exam, medical decision making, and the department course for this patient. I have also personally directed, reviewed, and agree with the discharge instructions and disposition. Disposition/Present on Arrival - Present on Arrival Any Indicators Present on Arrival: No History of DVT/PE: No History of Uncontrolled Diabetes: No Urinary Catheter: No History of Decub. Ulcer: No History Surgical Site Infection Following: None - Disposition Have Diagnosis and Disposition been Completed?: Yes Diagnosis: Headache Disposition: HOME/ ROUTINE Disposition Time: 17:15 Condition: GOOD Discharge Instructions (ExitCare): Headache, Adult (DC) Additional Instructions: Thank you for letting us take care of you today. The emergency medical care you received today was directed at your acute symptoms. If you were prescribed any medication, please fill it and take as directed. It may take several days for your symptoms to resolve. Return to the Emergency Department if your symptoms worsen, do not improve, or if you have any other problems. Please contact your doctor or call one of the physicians/clinics you have been referred to that are listed on the Patient Visit Information form that is included in your discharge packet. Bring any paperwork you were given at discharge with you along with any medications you are taking to your follow up visit. Our treatment cannot replace ongoing medical care by a primary care provider (PCP) outside of the emergency department. Thank you for allowing the [facility] team to be part of your care today. Follow up with your primary care doctor in 1-2 days for re-evaluation and further management. Referrals: [facility] Nic[facility] Req, [Family Provider] - Follow up with primary Forms: [facility] ([place]ovenian)
--- NOTE | 2017-12-20 18:52 | CARD ---
APPROVED REPORT EKG Measurement Heart [id number] <Conclusion> Sinus rhythm with 1st degree AV block Possible Left atrial enlargement Cannot rule out Anterior infarct, age undetermined Abnormal ECG
--- NOTE | 2017-12-21 08:17 | RAD ---
PROCEDURE: CHEST RADIOGRAPH, 1 VIEW HISTORY: weakness COMPARISON: 11/15/2017. FINDINGS: LUNGS: Clear. PLEURA: No pneumothorax or pleural fluid seen. CARDIOVASCULAR: Normal. OSSEOUS STRUCTURES: No significant abnormalities. VISUALIZED UPPER ABDOMEN: Normal. OTHER FINDINGS: None. IMPRESSION: No active disease. No significant interval change compared to the prior examination(s).
== END 2017-12-20 17:50 | disposition home or self-care (01) ==
LOC: ED 14:58
DX: R51 Headache (principal); F17.210 Nicotine dependence, cigarettes, uncomplicated